=== PATIENT | female | born 1950 | race Caucasian/White ===

== ENCOUNTER 2023-09-22 08:36 | Outpatient (AMB) | payer MEDICARE, OTHER, SELFPAY ==
--- NOTE | 2023-09-22 08:43 | MHC.OFFWIV ---
Intake Vital Signs 09/22/23 08:44 Height 5 ft 7 in Weight 257 lb BMI 40.2 BP 130/80 Blood Pressure Location Lt brachial Position Sitting Pulse 69 Pulse Source Pulse Oximeter Temp 97.1 F Temp Source Temporal Artery Scan Pulse Oximetry (%) 95 Oxygen Delivery Method Room Air Intake Visit Reasons: [employer] Severe RT side shoulder pain Intake Note: pt is here today for severe rt shoulder pain started 1 week ago Patient Tobacco Use Status: Never used Tobacco Allergies No Known Allergies Allergy (Verified 09/22/23 08:57) Medication List - Last Reconciled 09/22/23 by MILTON Kuo hydrochlorothiazide 25 mg PO DAILY Do you need a note to return to daycare/school/sports/work: No HPI HPI Comments History of Present Illness Details Patient is a 73-year-old female in today for sick visit. Reports right shoulder pain started 5 days prior to this appointment. Denies trauma to the area states the pain developed after working on her garden. Has tried Tylenol with minimal relief. Has distant history of bursitis in same shoulder. Denies tingling or numbness. Denies radiating pain. Has point tenderness to right AC joint. Limited range of motion to abduction, over the head movements, and flexion. There is no obvious deformity to the joint. Patient is quite uncomfortable during the exam due to pain. [facility] Medical History (Updated 09/22/23 @ 09:28 by MILTON Kuo) Bursitis Social History Patient Tobacco Use Status: Never used Tobacco Review of Systems Const All systems reviewed & are unremarkable except as noted in HPI and below Physical Exam Vital Signs: Last Vital Signs Temp 97.1 F 09/22/23 08:44 Pulse 69 09/22/23 08:44 BP 130/80 09/22/23 08:44 Pulse Ox 95 09/22/23 08:44 Oxygen Delivery Method Room Air 09/22/23 08:44 BMI result Body Mass Index 40.2 Const Other: Appearance: Alert.? Oriented X3.? No acute distress.? Head: Normocephalic, CVS: Normal heart rate and rhythm.? Pulses normal.? Respiratory: No respiratory distress.? Skin: Skin warm and dry.? Normal skin color.? Extremities: No extremity edema. Limited range of motion to abduction, flexion, overhead movements. +tenderness to AC joint. Back: No midline tenderness, no C-spine tenderness. Neuro: Oriented X 3.? Assessment & Plan Assessment & Plan (1) Right shoulder pain: Comment: Patient had in office x-ray. Patient of fitted with right shoulder sling. Will advise patient she can take Tylenol, ibuprofen. Will give referral to Orthopedics. Code(s): M25.511 - Pain in right shoulder Qualifiers: Chronicity: acute Qualified Code(s): M25.511 - Pain in right shoulder Plan: Take your medications as prescribed. If you were prescribed antibiotics today, it is important that you take your medication to their entirety, do not skip any doses, do not finish them early. Follow-up with your primary care provider this week. Return to the emergency department with new or worsening symptoms. Such as fevers, chills, chest pain, shortness of breath, nausea, vomiting, dizziness, headache, vision changes, lethargy In case of emergency call 911 Plan Follow up with pcp. Orders: Orders XR shoulder RT min 2V Today M25.511 - Pain in right shoulder Referrals Orthopedics Referral M25.511 - Pain in right shoulder Medications: New acetaminophen (Tylenol) 650 mg (2 x 325 mg) PO Q6H PRN 30 tabs 0RF pain diclofenac sodium 1% apply to single knee, ankle, foot; for foot includes sole/toes/top of foot, shoulder. 4 grams topical QID 100 grams 0RF Coding Level of Care Code Est Pt Level 3 (49126) Diagnoses Acute pain of right shoulder M25.511 Chronicity: acute Time Spent (min) 28
[2023-09-22 08:44] VITALS: BP 130/80; PULSE 69; TEMP 36.2; O2SAT 95; BMI 40.2
== END 2023-09-22 09:33 | disposition home or self-care (01) ==
PROVIDERS: Visit Provider Nurse Practitioner Primary Care
DX: M25.511 Pain in right shoulder (principal)
CPT/HCPCS: 99213

== ENCOUNTER 2023-09-22 08:53 | Outpatient (REF) | payer MEDICARE, OTHER, SELFPAY ==
--- NOTE | ~2023-09-22 | XR_ITS ---
EXAMINATION: XR SHOULDER, RIGHT CLINICAL INFORMATION: Right shoulder pain. COMPARISON: None available. TECHNIQUE: AP external rotation, Grashey, scapular Y, and axillary views of the right shoulder. FINDINGS: Hypertrophic changes of the acromioclavicular joint. Downsloping acromion. Normal alignment of the glenohumeral joint with preserved cartilage space. No displaced fracture or dislocation. Soft tissue calcifications seen along the posterior superior aspect of the humeral head. XR/XR shoulder RT min 2V IMPRESSION: Hypertrophic changes of the acromioclavicular joint. Calcific tendinosis.
== END 2023-09-22 08:54 | disposition home or self-care (01) ==
LOC: HO.HMGCX 08:53
PROVIDERS: PCP Family Medicine; Visit Provider Nurse Practitioner Primary Care
DX: M25.511 Pain in right shoulder (principal)
CPT/HCPCS: 73030

== ENCOUNTER 2023-09-24 10:04 | Outpatient (AMB) | payer MEDICARE, OTHER, SELFPAY ==
--- NOTE | 2023-09-24 10:06 | A.OFFVIS_ITS ---
Intake Visit Reasons: [employer]-Right shoulder pain/interested in cortisone Intake Note: Susan Cox is a 73 year right hand dominant who presents today as a new patient for a evaluation of her right shoulder pain and she would like an injection. Patient reports that she was over doing it with the yard work and her shoulder started to cause her a lot of pain for a week. Currently her shoulder is feeling a bit better but is still having some sharp pain on top of her shoulder. She expresses that she finds relief when taking Tylenol and a topical gel. Allergies No Known Allergies Allergy (Verified 09/24/23 10:09) HPI HPI [employer]-Right shoulder pain/interested in cortisone: Details: 73-year-old right hand dominant female who presents in the office today, as a new patient, for an evaluation of right shoulder pain. Patient presented to the Walk-in clinic on 09/22/2023 with a complaint of severe right shoulder pain for 5 days. Per the clinic note the patient reports her pain started after working in the garden. She was placed in a sling and instructed to take OTC NSAIDs. While in the office today the patient reports she over worked the right shoulder while doing yard work. She states the pain began about a week ago. She claims her shoulder is currently feeling better but is still having some sharp pain on the top of the right shoulder. She expresses that she finds relief when taking Tylenol and with the use of the topical gel. ON LICENSE OF [facility] Medical History (Updated 09/24/23 @ 10:28 by Fernanda iHll PA-C) Bursitis Social History (Updated 09/24/23 @ 10:10 by Nancy Delvalle) Alcohol intake: current Alcohol intake frequency: holidays/special occasions only Patient Tobacco Use Status: Never used Tobacco Review of Systems Const All systems reviewed & are unremarkable except as noted in HPI and below Physical Exam Const General: cooperative, healthy appearing and no acute distress Resp Effort & Inspection: normal respiratory effort and able to speak in complete sentences Cardio Rate: regular rate Peripheral pulses: Peripheral pulses 2+ throughout GI Palpation (GI): Soft to palpation Skin Lesions: no lesions Rashes: no rashes Extrem Other: Right shoulder: Forward flexion and abduction to 30 degrees. External rotation has no motion. Unable to assess special tests due to ROM restrictions and pain. Office Procedures Joint Injection/Drain Joint Injection/Drain Primary Site: right shoulder Prep: site was prepped using aseptic technique, site was prepped using sterile technique and ethochloride spray was applied Injected: 80 mg of, DepoMedrol, with 8 mL of (2% plain lido ) and in the subcromial space Approach Used: posterolateral Procedure: The patient tolerated the procedure well, but had some pain with the injection and there was some relief with the local anesthesia Coding 99688 - Large joint Procedure code (CPT) selection complete Assessment & Plan Assessment & Plan (1) Adhesive capsulitis of right shoulder: Code(s): M75.01 - Adhesive capsulitis of right shoulder Category: Medical Plan Ms. Mo is a 73-year-old right hand dominant female who presents in the office today, as a new patient, for an evaluation of right shoulder pain. Patient presented to the Walk-in clinic on 09/22/2023 with a complaint of severe right shoulder pain for 5 days. Per the clinic note the patient reports her pain started after working in the garden. She was placed in a sling and instructed to take OTC NSAIDs. While in the office today the patient reports she over worked the right shoulder while doing yard work. She states the pain began about a week ago. She claims her shoulder is currently feeling better but is still having some sharp pain on the top of the right shoulder. She expresses that she finds relief when taking Tylenol and with the use of the topical gel. The patient was offered a cortisone injection in the right shoulder with 80 mg of DepoMedrol. The patient was explained the risk, benefits, and alternatives to receiving this injection. After receiving consent for the injection, the patient had the procedure done while in the office today. The patient tolerated the procedure well with no complications. A referral to PT was made in the office today. Follow up will be in 6 weeks, or sooner if needed. Orders: Orders PT Evaluation and Treatment Today M75.01 - Adhesive capsulitis of right shoulder Patient Instructions: Scribed by Verónica Echevarria medical art therapist, for Fernanda Hill PA-C on 09/24/2023 at 10:06 am, EST. Coding Level of Care Code New Pt Level 4 (55060) Diagnoses Adhesive capsulitis of right shoulder M75.01 CPT Codes Coding - 46159 Large joint: 11293 - Large joint ([id number])
== END 2023-09-24 11:02 | disposition home or self-care (01) ==
PROVIDERS: PCP Family Medicine; Visit Provider Physician Assistant
DX: M75.01 Adhesive capsulitis of right shoulder (principal)
CPT/HCPCS: 20610; 99204

== ENCOUNTER → 2023-09-24 10:04 | Outpatient (BNVA) | payer MEDICARE, OTHER, SELFPAY | PROVIDERS: PCP Family Medicine; Visit Provider Physician Assistant | DX: M75.01 Adhesive capsulitis of right shoulder (principal) | CPT/HCPCS: 20610; 99202; J1010 ==

== ENCOUNTER 2023-11-04 09:55 | Outpatient (RCR) | payer MEDICARE, OTHER, SELFPAY | END 2024-02-16 15:02 | disposition home or self-care (01) | LOC: HO.PT 09:55 | PROVIDERS: PCP Family Medicine; Visit Provider Physician Assistant | DX: M75.01 Adhesive capsulitis of right shoulder (principal) ==